=== PATIENT | male | born 2005 | race Caucasian/White ===

== ENCOUNTER 2024-01-09 23:09 | Emergency (ER) | payer SELFPAY ==
[~2024-01-09] VITALS: Ht 180.3 cm; Wt 81.6 kg
[2024-01-09 23:15] VITALS: BP 153/84; RESP 16; TEMP 98.7; O2SAT 100
[2024-01-09 23:16] VITALS: PULSE 132
[2024-01-09 23:50] LABS: BASOPHILS % 0.3 % (0.0-2.0); EOSINOPHILS % 0.2 % (0.0-5.0); HEMATOCRIT. 43.2 % (42.0-52.0); HEMOGLOBIN. 14.7 g/dL (14.0-18.0); LYMPHOCYTES % 13.4 % (20.0-50.0); MEAN CORPUSCULAR HEMOGLOBIN 29.8 pg (28.0-32.0); MEAN CORPUSCULAR VOLUME 87.5 fL (80.0-94.0); MEAN PLATELET VOLUME 8.8 fl (7.4-10.4); MONOCYTES % 5.4 % (2.0-8.0); NEUTROPHILS % 80.7 % (40.0-76.0); PLATELET 248 x1000/uL (130-400); RED BLOOD CELL COUNT 4.94 mill/uL (4.7-6.1); RED CELL DISTRIBUTION WIDTH 13.4 % (11.6-14.6)
[2024-01-09 23:53] LABS: CHLORIDE 101 mEq/L (98-107); POTASSIUM 3.2 mEq/L (3.5-5.1); SODIUM 137 mEq/L (136-145)
[2024-01-09 23:54] LABS: CARBON DIOXIDE 26 mEq/L (21-32)
[2024-01-09 23:55] LABS: CALCIUM 10.2 mg/dL (8.7-10.4)
[2024-01-09 23:59] LABS: CREATININE 1.1 mg/dL (0.6-1.3); GLUCOSE 177 mg/dL (70-105); UREA NITROGEN BLOOD 16 mg/dL (9-23)
[2024-01-10] LABS: TROPONIN I HIGH SENSITIVITY 46 ng/L (3.0-53)
[2024-01-10 01:59] LABS: CLARITY URINE CLEAR (CLEAR); COLOR URINE DARK YELLOW (YELLOW); GLUCOSE URINE NEGATIVE (NEGATIVE); KETONES URINE NEGATIVE (NEGATIVE); LEUKOCYTE ESTERASE URINE NEGATIVE (NEGATIVE); NITRITE URINE NEGATIVE (NEGATIVE); OCCULT BLOOD URINE NEGATIVE (NEGATIVE); PH URINE 5.5 (4.5-8.0); PROTEIN URINE 1+ (NEGATIVE); SPECIFIC GRAVITY URINE 1.032 (1.005-1.030)
[2024-01-10 02:18] LABS: BACTERIA URINE 1+; RBC URINE 0-2 /hpf (0-2); SQUAMOUS EPITHELIAL CELL URINE 1+ /lpf (RARE/1+)
[2024-01-10 02:19] LABS: CALCIUM OXALATE CRYSTALS URINE 3+ /lpf; MUCUS URINE 2+ /lpf (NONE/TRACE); WBC URINE 0-2 /hpf (0-2)
[2024-01-10] MEDS ORDERED: PENI500T MT (02:35)
== END 2024-01-10 03:05 | disposition home or self-care (01) ==
LOC: ER 23:09
DX: J02.9 Acute pharyngitis, unspecified (principal); T40.711A Poisoning by cannabis, accidental (unintentional), initial encounter; Y92.9 Unspecified place or not applicable
CPT/HCPCS: 36415; 71045; 80048; 81003; 84484; 85025; 93005; 99285